=== PATIENT | female | born 1990 | race Caucasian/White ===

== ENCOUNTER → 2018-08-09 | Outpatient (CLI) | payer BC | LOC: COL.PUL 08-06 10:00 | DX: R06.02 Shortness of breath (principal) | CPT/HCPCS: J7674 ==

== ENCOUNTER → 2020-10-20 | Outpatient (CLI) | payer BC ==
[~2020-10-20] MED LIST: IBU800 M1 PO; PRENATAL
== END ==
LOC: ZCOL.LAB 08:27
DX: Z20.828 Contact with and (suspected) exposure to other viral communicable diseases (principal)

== ENCOUNTER 2020-10-25 06:39 | Inpatient (IN) | payer BC ==
[~2020-10-25] VITALS: Ht 167.6 cm; Wt 90.0 kg
--- NOTE | 2020-10-25 18:40 | NUR ---
Pt arrived on unit ambulatory and escorted by for scheduled induction of labor. Pt denies any contractions, leaking of fluid or vaginal bleeding and reports normal movement. EFM and toco monitors started. Vital signs WNL. Plan of care for induction reviewed. Oriented to room, bed and call light within reach.
[2020-10-25 18:49] VITALS: BP 125/72; PULSE 82; TEMP 98
[2020-10-25] MEDS ORDERED: PRENATAL (18:54)
[2020-10-25 20:09] LABS: BASO % 0.2 % (0.0-2.0); EOS # 0.1 (0.0-0.7); EOS % 0.9 % (0-4.0); GRAN # 9.8 (1.4-6.5); GRAN % 80.1 % (42.2-75.2); HEMOGLOBIN 11.7 g/dl (12.5-16.0); LYMPH # 1.6 (1.2-3.4); LYMPH % 13.5 % (20.0-51.0); MEAN CELL VOLUME 92 fl (80.0-100.0); MEAN CORPUSCULAR HEMOGLOBIN 31 pg (27.0-31.0); MEAN CORPUSCULAR HGB CONC 34 g/dl (33.0-37.0); MEAN PLATELET VOLUME 9.4 fl (7.4-10.4); MONO # 0.6 (0.1-0.6); MONO % 4.8 % (1.7-9.3); PLATELET COUNT 304 K/mm3 (130-400); RED BLOOD COUNT 3.73 M/mm3 (4.10-5.30); REDCELL DISTRIBUTION WIDTH-CV 13.2 % (11.5-14.5)
[2020-10-25 20:12] LABS: HEMATOCRIT 34.4 % (37.0-47.0)
[2020-10-25 20:45] VITALS: BP 98/55; PULSE 67
[2020-10-25 21:15] VITALS: BP 97/53; PULSE 64
[2020-10-25 21:45] VITALS: BP 108/53; PULSE 65
[2020-10-26] VITALS (55 sets, daily range): BP systolic 93–129; BP diastolic 51–83; PULSE 53–93; TEMP 97.5–98.6
--- NOTE | 2020-10-26 07:45 | NUR ---
DR VERGARA CALLED HERE AT 0731 FOR STATUS UPDATE ON PT. NOTIFIED SVE /. THIRD DOSE OF CYTOTEC PLACED AT 0400 AND PITOCIN TO BE STARTED AT 0800. FHT'S WITH MINIMAL VARIABILITY AND NO ACCELS SINCE THIS RN HAS BEEN HERE AT 0615 BUT FHT'S HAD MODERATE VARIABILITY AND ACCELS THROUGHOUT THE NIGHT PER JEEVAN JOEL.
--- NOTE | 2020-10-26 09:01 | NUR ---
CONTRACTIONS DIFFICULT TO MONITOR WITH PT LYING LATERALLY.
--- NOTE | 2020-10-26 09:45 | NUR ---
DR VERGARA IN AT 0937. SVE /. SROM AT 0940 WITH CLEAR FLUID. FSE PLACED BY DR VERGARA.
--- NOTE | 2020-10-26 10:15 | NUR ---
PT WANTING EPIDURAL. CALLED KONRAD MESSER, AT 1015 TO COME FOR PLACEMENT. BOLUS OF LR STARTED. PT SITTING IN ROCKING CHAIR.
--- NOTE | 2020-10-26 11:00 | NUR ---
KONRAD MESSER, IN FOR EPIDURAL PLACEMENT AT 1045. SINGLE SHOT AT 1050 WITH NO ABNORMAL SYMPTOMS OBSERVED OR REPORTED. PT POSITIONED LYING DOWN AFTER PLACEMENT. PT REPORTING ONLY FEELING PRESSURE WITH CONTRACTIONS BY 11:00 AND NOT PAIN LIKE SHE WAS FEELING.
--- NOTE | 2020-10-26 12:00 | NUR ---
FHT'S WITH REPETITIVE LATE DECELS. PT REPOSITIONED WEDGE RIGHT WITH PEANUT BALL. FLUID BOLUS ADMINISTERED. CONTRACTIONS IRREGULAR WITH SOME COUPLING,TRIPLING, AND QUADRUPLING.
--- NOTE | 2020-10-26 12:30 | NUR ---
DR VERGARA IN TO SEE PT AT 1220. SVE /-2. FHT'S WITH LATE DECELS FOR [address] VERGARA AT BEDSIDE. PITOCIN OFF, BOLUS STARTED OF LR, REPOSITIONED WEDGE LEFT AND THEN ANOTHER LATE DECEL. REPOSITIONED TO KNEE CHEST AND O2 ON 10L PER NON REBREATHER. DR VERGARA REMAINS IN ROOM.
--- NOTE | 2020-10-26 12:45 | NUR ---
PT REPOSITIONED LEFT LATERAL WITH PEANUT BALL AFTER 6" OF KNEE CHEST. NO FURTHER LATE DECELS.
--- NOTE | 2020-10-26 13:30 | NUR ---
PITOCIN RESTARTED AT 2MU AT 1330.
--- NOTE | 2020-10-26 14:45 | NUR ---
NOTIFIED DR VERGARA AT 1434 OF NO CHANGE IN SVE AND PT REPOSITIONED IN [facility].
--- NOTE | 2020-10-26 15:45 | NUR ---
PT FEELING NAUSEATED. VOMITING AT 1540 AND SAYS SHE FEELS BETTER AFTER VOMITING.
--- NOTE | 2020-10-26 16:30 | NUR ---
SVE 4-5//-2. LARGE GUSH OF CLEAR FLUID DURING SVE. PT AGAIN NAUSEATED AND STARTS VOMITING. PERICARE PERFORMED. REPOSITIONED.
--- NOTE | 2020-10-26 16:45 | NUR ---
FHT'S WITH LATE DECELS. PT REPOSITIONED TO RIGHT LATERAL AND DECELS STOP. UNABLE TO MONITOR CONTRACTIONS WITH PT IN THIS POSITION. PT NOW SLEEPING.
--- NOTE | 2020-10-26 17:00 | NUR ---
REPOSITIONED TOCO IN ATTEMPT TO MONITOR CONTRACTIONS. SPOKE WITH DR VERGARA AT [id number]-SHE CALLED TO CHECK ON PT.
--- NOTE | 2020-10-26 17:45 | NUR ---
SVE /+1. PHONED DR VERGARA AT 1745 WITH SVE UPDATE.
--- NOTE | 2020-10-26 18:15 | NUR ---
1815- THIS RN TO BEDSIDE. SHIFT REPORT GIVEN AT BEDSIDE DURING ACTIVE PUSHING WITH PROVIDER IN THE ROOM. PCR.CORA STAYED IN THE ROOM FOR DELIVERY. 182- OF VIABLE FEMALE INFANT. INFANT PLACED TO MOTHER ABDOMEN AND NURSERY NURSE ASSUMES CARE AT THIS TIME. PITOCIN TURNED OFF BY BO KEANE RN. 183- OF PLACENTA. FUNDUS MASSAGED TO FIRM BY PROVIDER WITH MODERATE AMOUTN OF BRIGHT RED BLOOD NOTED. PITOCIN TURN ON AND RUNNING PER PROTOCOL AT 333ML/HR. 2ND DEGREE PERINEAL LACERATION NOTED BY PROVIDER. 1840- BRIGHT RED GUSH NOTED BY PROVIDER. FUNDUS MASSAGED AND WAS FIRM BY THIS NURSE AND MODERATE AMOUNT OF BRIGHT RED BLOOD NOTED ALONG WITH URINE. PROVIDER BRIA JIMENEZ CATHED THE PATIENT AT THIS TIME AND RECEIVED A SMALL AMOUNT OF CLEAR YELLOW URINE BACK. 1843- PT. BEGINS VOMITING. PROVIDER GIVES VERBAL ORDER TO GIVE 4MG OF ZOFRAN IV FOR PT. 1844- 4MG OF ZOFRAN GIVEN IV TO PATIENT BY THIS NURSE. 1845- REPAIRS FINISHED. PATIENT CLEANED UP. NEW CHUX, PAD AND ICEPACK UNDER PATIENT. BED AND ROOM PUT BACK TOGETHER AND CLEANED UP. EBL NOTED TO BE 200 BY PROVIDER VERBALLY AT BEDSIDE. ALL COUNTS CORRECT AT THIS TIME. FUNDUS FIRM WITH MODERATE AMOUNT OF BLOOD NOTED. VITALS TAKEN. RECOVERY STARTED.
[2020-10-27 02:45] VITALS: BP 105/59; PULSE 82; TEMP 99.1
[2020-10-27 07:10] VITALS: BP 103/59; PULSE 84; TEMP 98.6
--- NOTE | 2020-10-27 09:16 | NUR ---
Initial visit; Parents thanked Telephone Answerer for offering congratulations and God's blessings for the of their daughter. Telephone Answerer thanked family for choosing [facility].
[2020-10-27 12:00] VITALS: BP 110/58; PULSE 86; TEMP 98.5
[2020-10-27 16:50] VITALS: BP 100/59; PULSE 68; TEMP 98.1
[2020-10-27 21:00] VITALS: BP 104/58; PULSE 63; TEMP 97.6
[2020-10-28 07:10] VITALS: BP 100/53; PULSE 59; TEMP 98.1
[2020-10-28] MEDS ORDERED: IBU800 M1 PO (09:04)
== END 2020-10-28 11:30 | disposition home or self-care (01) | DRG 806 ==
LOC: OB 06:39 → LDR 18:28 → OB 10-26 21:30
PROVIDERS: ADMIT Student in an Organized Health Care Education/Training Program
PROC: 10E0XZZ Delivery of Products of Conception, External Approach (ICD-10-PCS; principal; 2020-10-26)
PROC: 0KQM0ZZ Repair Perineum Muscle, Open Approach (ICD-10-PCS; 2020-10-26)
PROC: 10907ZC Drainage of Amniotic Fluid, Therapeutic from Products of Conception, Via Natural or Artificial Opening (ICD-10-PCS; 2020-10-26)
PROC: 3E0P7VZ Introduction of Hormone into Female Reproductive, Via Natural or Artificial Opening (ICD-10-PCS; 2020-10-26)
DX: O69.89X0 Labor and delivery complicated by other cord complications, not applicable or unspecified (principal); E22.1 Hyperprolactinemia; Z37.0 Single live birth; O99.284 Endocrine, nutritional and metabolic diseases complicating childbirth; O99.214 Obesity complicating childbirth; E66.9 Obesity, unspecified; O70.1 Second degree perineal laceration during delivery; Z3A.40 40 weeks gestation of pregnancy
CPT/HCPCS: J2405; J2590; J2795; J7120

== ENCOUNTER → 2021-11-04 | Outpatient (CLI) | payer OTHER | LOC: COL.RAD 08:29 | DX: D35.2 Benign neoplasm of pituitary gland (principal) | CPT/HCPCS: A9585 ==